=== PATIENT | male | born 1945 | race Caucasian/White ===

== ENCOUNTER 2021-02-08 17:13 | Emergency (ER) | payer MEDICAID, MEDICARE, OTHER ==
[2021-02-08] MEDS ORDERED: Sodium Chloride 0.9% 10 ML Syringe FLUSH PRN (17:21)
--- NOTE | 2021-02-08 17:42 | EDM.PDOC ---
ED HPI GENERAL MEDICAL PROBLEM - General Time Seen by Provider: 02/08/21 17:21 Source of Information: Reports: Patient, EMS - History of Present Illness INITIAL COMMENTS - FREE TEXT/NARRATIVE: Marquez is a 75 y/o male who is brought to the ER by EMS today after he became weak while walking around [place] [employer] [place] [employer] in [facility]. He can't really describe his symptoms other than "I didn't feel well.". No chest pain. He did all of a sudden become incontinent of urine and stool. NO seizure activity reported by bystanders, but he is a but unsure what happened. Glucose by EMS =135. Patient initially did not want to be transported to the ER, but friends advised him that he looked quite amezquita. He was admitted to the [facility] from 02/01/2021-02/03/2021 for an exacerbation of Heart Failure. He had apparently put on 20# of fluid over the last month and was admitted for diuresis. His PCP there is Dr Jaxson Monson. He does have an upcoming consult to be seen in the Heart Failure clinic in [place]. - Related Data Allergies Allergy/AdvReac Type Severity Reaction Status Date / Time atorvastatin [From Lipitor] Allergy Other Verified 02/08/21 17:38 lisinopril Allergy Other Verified 02/08/21 17:39 Past Medical History Cardiovascular History: Reports: Afib, Angina, Bypass, CAD, Heart Failure, Heart Murmur, High Cholesterol, Hypertension, Pulmonary Hypertension, Other (See Below) (Eleavted BNP) Respiratory History: Reports: Bronchitis, Recurrent, Other (See Below) (Pulmonary Edema, ILIANA) Gastrointestinal History: Reports: Colon Polyp, GI Bleed Genitourinary History: Reports: BPH, Prostate Disorder (Nodular with Urinary Obstruction), Other (See Below) (Prostate CA) Musculoskeletal History: Reports: Back Pain, Chronic, Other (See Below) (Shoulder Tendinitis, Spinal Stenosis,DDD) Neurological History: Reports: Neuropathy, Peripheral Endocrine/Metabolic History: Reports: Diabetes, Type II Hematologic History: Reports: Anemia (BARON) - Past Surgical History Cardiovascular Surgical History: Reports: Coronary Artery Bypass GI Surgical History: Reports: Colon Male Surgical History: Reports: Prostate Biopsy, Prostatectomy, Vasectomy Review of Systems - Review of Systems Review Of Systems: See Below Constitutional: Reports: Chills, Weakness Eyes: Reports: No Symptoms Ears: Reports: No Symptoms Nose: Reports: No Symptoms Mouth/Throat: Reports: No Symptoms Respiratory: Reports: No Symptoms Cardiovascular: Reports: Lightheadedness GI/Abdominal: Reports: Nausea Genitourinary: Reports: Incontinence (Urine and Stool) Musculoskeletal: Reports: No Symptoms Skin: Reports: Pallor Neurological: Reports: Weakness Psychiatric: Reports: No Symptoms ED EXAM, GENERAL - Physical Exam Exam: See Below General Appearance: Alert, WD/WN, No Apparent Distress (Elderly male. Able to answer questions for staff.) Eye Exam: Bilateral Eye: PERRL Ears: Normal External Exam, Normal Canal, Hearing Grossly Normal, Normal TMs Nose: Normal Inspection, Normal Mucosa Throat/Mouth: Normal Voice Head: Atraumatic, Normocephalic Neck: Supple Respiratory/Chest: No Respiratory Distress, Chest Non-Tender, Decreased Breath Sounds (in bases) Cardiovascular: JVD, Irregularly Irregular GI/Abdominal: Normal Bowel Sounds, Soft, Non-Tender (Male) Exam: Deferred Rectal (Males) Exam: Deferred Back Exam: Normal Inspection Extremities: Normal Inspection, Normal Range of Motion, Normal Capillary Refill Neurological: Alert, Oriented, CN II-XII Intact, Normal Cognition, Normal Gait, No Motor/Sensory Deficits Psychiatric: Normal Affect, Normal Mood Skin Exam: Warm, Intact, Pallor (Amezquita) Lymphatic: No Adenopathy #1 Interpretation EKG Date: 02/08/21 Time: 17:20 Rhythm: A-Fib Rate (Beats/Min): 79 Bruno: Normal P-Wave: Absent QRS: Normal QT: Prolonged Comparison: No Change (A fib noted on [facility] EKG 02/01/2021) Course - Vital Signs Text/Narrative:: 1720 The patient was seen by the INSURANCE VERIFICATION SPECIALIST on arrival to the ER. Labs, EKG, and CXR ordered. 1719 Reviewed recent EKG from and stable A fib noted. 1809 Lactic acid=7.0. Ceftriaxone 1gm IVP ordered to cover for sepsis. CBC WBC=13.8, Hsb=600. Additional labs reviewed: CMP BUN=38, Geriatric Nurse=2.2, Nmshiyq=748, Mg=1.6; JKO=2001, TSH=14.318, Troponin I=16 (neg). NS 1 liter bolus ordered. 1824 [facility] contacted and case discussed with Dr Lucas. Patient accepted for transfer. Will continue IV hydration until transport. Patient remained stable in the ER until he left with [facility]. - Orders/Labs/Meds Orders: Active Orders 24 hr Category Date Time Status EKG Documentation Completion [RC] STAT Care 02/08/21 17:22 Active CULTURE BLOOD [BC] Stat Lab 02/08/21 18:01 Received CULTURE BLOOD [BC] Stat Lab 02/08/21 18:07 Received REFLEX LACTIC ACID YES OR NO [CHEM] Routine Lab 02/08/21 18:09 Received UA RFX LOUIE AND CULT IF INDIC [URIN] Stat Lab 02/08/21 17:22 Ordered Sodium Chloride 0.9% [Normal Saline] 1,000 ml Med 02/08/21 18:14 Active IV ONETIME Sodium Chloride 0.9% [Saline Flush] Med 02/08/21 17:21 Active 10 ml FLUSH ASDIRECTED PRN Saline Lock Insert [OM.PC] Stat Oth 02/08/21 17:22 Ordered Labs: Laboratory Tests 02/08/21 02/08/21 02/08/21 Range/Units 17:25 17:25 17:25 WBC 13.8 H (4.0-10.0) x10^3/uL RBC 4.32 L (4.5-6.0) x10^6/uL Hgb 10.7 L (14.0-18.0) g/dL Hct 34.7 L (40.0-52.0) % MCV 80.3 (78.0-93.0) fL MCH 24.8 L (26.0-32.0) pg MCHC 30.8 L (32.0-36.0) g/dL RDW Coeff of Serenity 16.5 H (10.0-15.0) % Plt Count 323 (130-400) x10^3/uL Add Manual Diff Yes Neutrophils % (Manual) 78 (50-80) % Lymphocytes % (Manual) 13 L (25-50) % Monocytes % (Manual) 8 (2-11) % Eosinophils % (Manual) 1 (0-4) % Platelet Estimate Adequate Giant Platelets Occasional H PT 12.1 (9.9-12.5) SEC INR 1.1 L (2.0-3.5) APTT 24.8 L (25.6-32.8) SEC D-Dimer, Quantitative (<=0.58) mg/LFEU Sodium 143 (136-145) mmol/L Potassium 4.1 (3.5-5.1) mmol/L Chloride 104 (98-107) mmol/L Carbon Dioxide 22 (21-32) mmol/L Anion Gap 21.1 H (5-15) mmol/L BUN 38 H (7-18) mg/dL Creatinine 2.2 H (0.70-1.30) mg/dL Est Cr Clr Drug Dosing TNP Estimated GFR (MDRD) 29 Glucose 134 H (74-106) mg/dL Lactic Acid (0.4-2.0) mmol/L Calcium 8.7 (8.5-10.1) mg/dL Corrected Calcium 9.02 (8.5-10.1) mg/dL Magnesium 1.6 L (1.8-2.4) mg/dL Total Bilirubin 0.5 (0.2-1.0) mg/dL AST 21 (15-37) U/L ALT 12 L (16-63) U/L Alkaline Phosphatase 126 H (46-116) U/L Troponin I High Sens 16 (<=76) ng/L C-Reactive Protein 1.4 H (<=0.9) mg/dL NT-Pro-B Natriuret Pep 8062 H (<=450) pg/mL Total Protein 7.7 (6.4-8.2) g/dL Albumin 3.6 (3.4-5.0) g/dL Globulin 4.1 Albumin/Globulin Ratio 0.88 Amylase 35 (25-115) U/L Lipase 144 (73-393) U/L TSH, Ultra Sensitive 14.318 H (0.358-3.74) uIU/mL 02/08/21 02/08/21 Range/Units 17:25 17:25 WBC (4.0-10.0) x10^3/uL RBC (4.5-6.0) x10^6/uL Hgb (14.0-18.0) g/dL Hct (40.0-52.0) % MCV (78.0-93.0) fL MCH (26.0-32.0) pg MCHC (32.0-36.0) g/dL RDW Coeff of Serenity (10.0-15.0) % Plt Count (130-400) x10^3/uL Add Manual Diff Neutrophils % (Manual) (50-80) % Lymphocytes % (Manual) (25-50) % Monocytes % (Manual) (2-11) % Eosinophils % (Manual) (0-4) % Platelet Estimate Giant Platelets PT (9.9-12.5) SEC INR (2.0-3.5) APTT (25.6-32.8) SEC D-Dimer, Quantitative 3.33 H (<=0.58) mg/LFEU Sodium (136-145) mmol/L Potassium (3.5-5.1) mmol/L Chloride (98-107) mmol/L Carbon Dioxide (21-32) mmol/L Anion Gap (5-15) mmol/L BUN (7-18) mg/dL Creatinine (0.70-1.30) mg/dL Est Cr Clr Drug Dosing Estimated GFR (MDRD) Glucose (74-106) mg/dL Lactic Acid 7.0 H* (0.4-2.0) mmol/L Calcium (8.5-10.1) mg/dL Corrected Calcium (8.5-10.1) mg/dL Magnesium (1.8-2.4) mg/dL Total Bilirubin (0.2-1.0) mg/dL AST (15-37) U/L ALT (16-63) U/L Alkaline Phosphatase (46-116) U/L Troponin I High Sens (<=76) ng/L C-Reactive Protein (<=0.9) mg/dL NT-Pro-B Natriuret Pep (<=450) pg/mL Total Protein (6.4-8.2) g/dL Albumin (3.4-5.0) g/dL Globulin Albumin/Globulin Ratio Amylase (25-115) U/L Lipase (73-393) U/L TSH, Ultra Sensitive (0.358-3.74) uIU/mL - Radiology Interpretation Free Text/Narrative:: XR Chest 1V=central venous vascular congestion (See final report) Departure - Departure Time of Disposition: 18:37 Disposition: DC/Tfer to Acute Hospital 02 Condition: Good Clinical Impression: CHF, Congestive heart failure, Elevated lactic acid level, Near syncope, Elevated TSH, Volume depletion - Discharge Information Forms: Interfacility Transfer EMTALA - My Orders Last 24 Hours: My Active Orders 02/08/21 17:21 Sodium Chloride 0.9% [Saline Flush] 10 ml FLUSH ASDIRECTED PRN 02/08/21 17:22 EKG Documentation Completion [RC] STAT UA RFX LOUIE AND CULT IF INDIC [URIN] Stat Saline Lock Insert [OM.PC] Stat 02/08/21 18:01 CULTURE BLOOD [BC] Stat 02/08/21 18:07 CULTURE BLOOD [BC] Stat 02/08/21 18:09 REFLEX LACTIC ACID YES OR NO [CHEM] Routine 02/08/21 18:14 Sodium Chloride 0.9% [Normal Saline] 1,000 ml IV ONETIME - Assessment/Plan Last 24 Hours: My Active Orders 02/08/21 17:21 Sodium Chloride 0.9% [Saline Flush] 10 ml FLUSH ASDIRECTED PRN 02/08/21 17:22 EKG Documentation Completion [RC] STAT UA RFX LOUIE AND CULT IF INDIC [URIN] Stat Saline Lock Insert [OM.PC] Stat 02/08/21 18:01 CULTURE BLOOD [BC] Stat 02/08/21 18:07 CULTURE BLOOD [BC] Stat 02/08/21 18:09 REFLEX LACTIC ACID YES OR NO [CHEM] Routine 02/08/21 18:14 Sodium Chloride 0.9% [Normal Saline] 1,000 ml IV ONETIME Assessment:: 1)Heart Failure 2)Near Syncope 3)Volume Depletion 4)Elevated Lactic Acid 5)Elevated TSH Plan: -Transfer to [facility] to Dr Lucas via [facility] -IV fluids infusing for transfer due to severe volume depletion
--- NOTE | 2021-02-08 17:49 | CR ---
[id number] RAD/RAD Chest PA or AP 1V EXAM: RAD Chest PA or AP 1V INDICATION: NEAR SYNCOPE. COMPARISON: None. DISCUSSION: Median sternotomy wires. Cardiomediastinal silhouette is enlarged. Central pulmonary vascular congestion. No infiltrate, effusion, or pneumothorax. IMPRESSION: Central pulmonary vascular congestion. Vinicio Hernandez DO 02/08/21 [id number] Thank you for allowing us to participate in the care of your patient.
[2021-02-08 18:07] LABS: CHLORIDE,CL 104 mmol/L (98-107); SODIUM,NA 143 mmol/L (136-145)
[2021-02-08 18:09] LABS: ANION GAP 21.1 mmol/L (5-15)
[2021-02-08 18:11] LABS: PTT,PARTIAL THROMBOPLSTIN TIME 24.8 SEC (25.6-32.8)
[2021-02-08] MEDS ORDERED: cefTRIAXone 1 GM Vial IVPUSH ONE (18:14)
[2021-02-08] MEDS ORDERED: Sodium Chloride 0.9% 1,000 ML IV ONE ×2 (18:14→18:40)
== END 2021-02-08 19:21 | disposition short-term general hospital (02) ==
LOC: VM.ED 17:13
DX: I11.0 Hypertensive heart disease with heart failure (principal); I50.9 Heart failure, unspecified; E11.42 Type 2 diabetes mellitus with diabetic polyneuropathy; R74.02 Elevation of levels of lactic acid dehydrogenase [LDH]; R55 Syncope and collapse; E86.0 Dehydration; R94.6 Abnormal results of thyroid function studies; I48.91 Unspecified atrial fibrillation; I25.10 Atherosclerotic heart disease of native coronary artery without angina pectoris; Z95.1 Presence of aortocoronary bypass graft
CPT/HCPCS: 36415; 71045; 80053; 82150; 83605; 83690; 83735; 83880; 84443; 84484; 85025; 85379; 85610; 85730; 86140; 87040; 93005; 93010; 96374; 99284; 99285-25; J0696; J7030